=== PATIENT | male | born 1950 | race Caucasian/White ===

== ENCOUNTER 2016-08-15 23:43 | Emergency (ER) | payer OTHER ==
[~2016-08-15] VITALS: Ht 160 cm; Wt 93.7 kg
[~2016-08-15 23:43] MED LIST: ACIPHEX20 MG PO; DAILY VALUE1 EACH PO; ECPIRIN325 M1 PO; FISH OIL SOFTG1 EACH PO; FUROSEMIDE40 MG PO; GLUCOPHAGE500 MG PO; INDOCIN50 MG PO; KEFLEX500 MG PO; KLOR-CON20 MEQ PO; MVI-12,MULTIVI100 ML IV; NAPROSYN500 MG PO; NORCO 5/3251 TABLET PO; PAROXETINE HCL20 MG PO; PRINIVIL20 MG PO; SIMVASTATIN40 MG PO; STOOL SOFTENER100 MG PO; TOPROL XL50 MG PO
[2016-08-16 03:41] LABS: HEMATOCRIT 32.6 % (38.0-50.0); MCH 28.9 PG (29.0-34.0); MCHC 33.7 G/DL (30.0-36.0); MCV 85.6 FL (86-99); PLATELET COUNT 159 K/uL (156-360); RBC DIS.WIDTH-CV 14.6 % (11.8-14.6); RBC DIS.WIDTH-SD 45.1 % (39-53); RED BLOOD COUNT 3.81 M/uL (4.00-5.50); WHITE BLOOD COUNT 7.9 K/uL (4.1-10.2)
[2016-08-16 03:54] LABS: CHLORIDE 107 mEq/L (99-109); SODIUM 140 mEq/L (136-147)
[2016-08-16 03:56] LABS: GLUCOSE 124 mg/dL (70-99)
[2016-08-16 03:58] LABS: ANION GAP 10 MEQ/L (2-14); TOTAL BILIRUBIN 0.8 mg/dL (0.0-1.0)
[2016-08-16 04:00] LABS: ALKALINE PHOSPHATASE 71 IU/L (3-129); GFR ESTIMATE (CALCULATED) > 59 mL/min/
[2016-08-16 04:01] LABS: UREA NITROGEN (BUN) 9 mg/dL (9-23)
[2016-08-16 04:03] LABS: URIC ACID 7.6 mg/dL (3.1-9.2)
[2016-08-16] MEDS ORDERED: INDOCIN50 MG PO (04:06)
[2016-08-16] MEDS ORDERED: PERCOCET 5/31 TABLET PO (04:06)
[2016-08-16] MEDS ORDERED: KEFLEX500 MG PO (04:06)
[2016-08-16 04:28] LABS: C-REACTIVE PROTEIN 10.4 MG/L (0-10)
[2016-08-16 04:37] VITALS: BP 182/73
== END 2016-08-16 04:37 | disposition home or self-care (01) ==
LOC: EME 23:43
PROVIDERS: Physician Assistant
DX: R22.42 Localized swelling, mass and lump, left lower limb (principal); E11.9 Type 2 diabetes mellitus without complications; J45.909 Unspecified asthma, uncomplicated; I10 Essential (primary) hypertension; E78.5 Hyperlipidemia, unspecified; I25.2 Old myocardial infarction; F17.200 Nicotine dependence, unspecified, uncomplicated
CPT/HCPCS: 73630; 80053; 84550; 85027; 86140; 93971; 99281; 99284

== ENCOUNTER 2016-12-20 09:02 | Emergency (ER) | payer OTHER ==
[~2016-12-20] VITALS: Ht 157.5 cm; Wt 90.4 kg
[~2016-12-20 09:02] MED LIST changes: +PERCOCET 5/31 TABLET PO
[2016-12-20 09:53] LABS: HEMATOCRIT 31.9 % (38.0-50.0); MCH 25.5 PG (29.0-34.0); MCHC 31.7 G/DL (30.0-36.0); MCV 80.6 FL (86-99); MEAN PLAT.VOLUME 10.5 uM^3 (9.0-12.4); PLATELET COUNT 197 K/uL (156-360); RBC DIS.WIDTH-CV 16.3 % (11.8-14.6); RBC DIS.WIDTH-SD 47.4 % (39-53); RED BLOOD COUNT 3.96 M/uL (4.00-5.50); WHITE BLOOD COUNT 8.5 K/uL (4.1-10.2)
[2016-12-20 10:02] LABS: CHLORIDE 105 mEq/L (99-109); SODIUM 139 mEq/L (136-147)
[2016-12-20 10:03] LABS: MAGNESIUM 1.5 mg/dL (1.3-2.7)
[2016-12-20 10:05] LABS: GLUCOSE 112 mg/dL (70-99)
[2016-12-20 10:06] LABS: ANION GAP 7 MEQ/L (2-14)
[2016-12-20 10:07] LABS: POTASSIUM 4.1 mEq/L (3.7-5.4); TOTAL BILIRUBIN 0.6 mg/dL (0.0-1.0)
[2016-12-20 10:08] LABS: ALKALINE PHOSPHATASE 70 IU/L (3-129)
[2016-12-20 10:09] LABS: GFR ESTIMATE (CALCULATED) 59 mL/min/
[2016-12-20 10:10] LABS: UREA NITROGEN (BUN) 11 mg/dL (9-23)
[2016-12-20 11:36] LABS: ADD MIUA? YES; BILIRUBIN NEGATIVE; BLOOD NEGATIVE; COLOR YELLOW ((YELLOW)); GLUCOSE (STRIP) NEGATIVE; KETONES NEGATIVE; LEUKOCYTES TRACE; NITRITE NEGATIVE; PROTEIN (STRIP) 30; SPECIFIC GRAVITY 1.009 (1.000-1.030); UROBILINOGEN 0.2 MG/DL (0.2-1.0)
[2016-12-20] MEDS ORDERED: TRAMADOL HCL E100 M1 PO (11:37)
[2016-12-20 11:47] LABS: BACTERIA 1+ /HPF; EPITHELIAL CELLS NONE SEEN /HPF; MUCUS TRACE /LPF; RED BLOOD CELLS 0-5 /HPF (0-5); UCUL ADDED? NO; WHITE BLOOD CELLS 0-5 /HPF (0-5)
[2016-12-20 12:10] VITALS: BP 199/79
== END 2016-12-20 12:11 | disposition home or self-care (01) ==
LOC: EME 09:02
PROVIDERS: Emergency Medicine
DX: M10.9 Gout, unspecified (principal); M25.462 Effusion, left knee; G89.29 Other chronic pain; I10 Essential (primary) hypertension; E78.5 Hyperlipidemia, unspecified; J45.909 Unspecified asthma, uncomplicated; E11.9 Type 2 diabetes mellitus without complications; Z79.84 Long term (current) use of oral hypoglycemic drugs; I25.2 Old myocardial infarction; Z95.1 Presence of aortocoronary bypass graft; F17.200 Nicotine dependence, unspecified, uncomplicated; Z88.1 Allergy status to other antibiotic agents
CPT/HCPCS: 80053; 81003; 83735; 85027